=== PATIENT | female | born 1980 | race Asian ===

== ENCOUNTER 2017-06-16 00:07 | Inpatient (IN) | payer OTHER ==
[2017-06-16] MEDS ORDERED: OXYTOCIN 30 UNITS/LR 500 ML IV ×3 (00:14→03:30)
[2017-06-16] MEDS: LACTATED RINGER'S 1,000 ML IV ×2 (00:20→04:57)
[2017-06-16] MEDS ORDERED: METHYLERGONOVINE 0.2 MG INJ IM ×2 (00:30→03:30)
[2017-06-16] MEDS ORDERED: MISOPROSTOL 200 MCG TAB PR ×2 (00:30→03:30)
[2017-06-16] MEDS ORDERED: CARBOPROST 250 MCG INJ IM ×2 (00:30→03:30)
[2017-06-16] MEDS ORDERED: BUTORPHANOL 2 MG INJ IV (00:30)
[2017-06-16 00:32] LABS: ADD MAN DIFF? NO
[2017-06-16 00:35] LABS: BASOPHILS % 0.2 % (0.0-2.0); EOSINOPHILS # 0.1 10^3/ul (0.0-0.5); EOSINOPHILS % 0.4 % (0.0-7.0); HEMATOCRIT 36.3 % (37.0-47.0); HEMOGLOBIN 12.3 g/dl (12.0-16.0); LYMPHOCYTES # 3.4 10^3/ul (0.8-2.9); LYMPHOCYTES % 30.5 % (15.0-51.0); MEAN CORPUSCULAR HEMOGLOBIN 31.9 pg (29.0-33.0); MEAN CORPUSCULAR HGB CONC 33.9 g/dl (32.0-37.0); MEAN PLATELET VOLUME 11.5 fl (7.4-10.4); MONOCYTE # 0.9 10^3/ul (0.3-0.9); MONOCYTES % 7.9 % (0.0-11.0); NEUTROPHIL # 6.7 10^3/ul (1.6-7.5); NEUTROPHILS % 60.6 % (39.0-77.0); PLATELET COUNT 202 10^3/UL (140-415); RED BLOOD COUNT 3.86 10^6/ul (4.20-5.40); RED CELL DISTRIBUTION WIDTH 13.7 % (11.5-14.5)
[2017-06-16 00:35] LABS: WHITE BLOOD COUNT 11.1 10^3/ul (4.8-10.8)
[2017-06-16] MEDS: OXYTOCIN 30 UNITS/LR 500 ML IV ×2 (00:37→01:42)
[2017-06-16] MEDS: LIDOCAINE 1% (MPF) 30 ML INJ INJ (00:45)
[2017-06-16 00:51] LABS: INR 0.82; PROTIME 11.4 Sec (11.9-14.9); PT RATIO 0.9
[2017-06-16 01:25] LABS: HEPATITIS B SURFACE ANTIGEN NEGATIVE (NEGATIVE)
[2017-06-16] MEDS ORDERED: OXYCODONE/ASPIRIN (4.88/325) TAB PO (03:30)
[2017-06-16] MEDS ORDERED: ZOLPIDEM 5 MG TAB PO (03:30)
[2017-06-16] MEDS: LANOLIN 7 GM TUBE TOP (03:52)
[2017-06-16] MEDS: BENZOCAINE 20% 56 ML SPRAY TOP (03:52)
[2017-06-16] MEDS: WITCH HAZEL/GLYCERIN PAD PR (03:52)
[2017-06-16] MEDS: OXYCODONE/ASPIRIN (4.88/325) TAB PO (03:53)
[2017-06-16] MEDS: IBUPROFEN 600 MG TAB PO ×3 (05:50→17:42)
[2017-06-16] MEDS: SENNA/DOCUSATE NA (8.6MG/50MG) TAB PO ×2 (09:10→21:31)
[2017-06-16 22:37] LABS: RAPID PLASMA REAGIN NONREACTIVE (NR)
[2017-06-17] MEDS: IBUPROFEN 600 MG TAB PO ×4 (00:53→18:09)
[2017-06-17 08:18] LABS: ADD MAN DIFF? NO
[2017-06-17 08:20] LABS: BASOPHIL # 0.1 10^3/ul (0.0-0.1); BASOPHILS % 0.4 % (0.0-2.0); EOSINOPHILS # 0.1 10^3/ul (0.0-0.5); EOSINOPHILS % 0.6 % (0.0-7.0); HEMATOCRIT 30.9 % (37.0-47.0); HEMOGLOBIN 10.2 g/dl (12.0-16.0); LYMPHOCYTES # 2.9 10^3/ul (0.8-2.9); LYMPHOCYTES % 22.6 % (15.0-51.0); MEAN CORPUSCULAR HEMOGLOBIN 31.4 pg (29.0-33.0); MEAN CORPUSCULAR VOLUME 95.1 fl (82.0-101.0); MEAN PLATELET VOLUME 12.1 fl (7.4-10.4); MONOCYTE # 0.9 10^3/ul (0.3-0.9); MONOCYTES % 6.7 % (0.0-11.0); NEUTROPHILS % 69.5 % (39.0-77.0); PLATELET COUNT 183 10^3/UL (140-415); RED BLOOD COUNT 3.25 10^6/ul (4.20-5.40); RED CELL DISTRIBUTION WIDTH 13.9 % (11.5-14.5)
[2017-06-17 08:20] LABS: WHITE BLOOD COUNT 12.9 10^3/ul (4.8-10.8)
[2017-06-17] MEDS: SENNA/DOCUSATE NA (8.6MG/50MG) TAB PO ×2 (09:14→20:53)
[2017-06-18] MEDS: IBUPROFEN 600 MG TAB PO ×2 (06:00)
[2017-06-18] MEDS: SENNA/DOCUSATE NA (8.6MG/50MG) TAB PO (09:14)
[2017-06-18] MEDS: DIPHTH/TET/ACEL PERTUSS (ADULT) 0.5 ML VIAL IM* (10:31)
[2017-06-18] MEDS: INFLUENZA VIRUS VACCINE 0.5 ML (DISPENSING) IM* (11:39)
== END 2017-06-18 14:50 | disposition home or self-care (01) | DRG 775 ==
LOC: OBT 00:07 → L-D 00:09 → OBT 00:19 → L-D 00:09 → PP1 03:33
PROVIDERS: Obstetrics & Gynecology
PROC: 10E0XZZ Delivery of Products of Conception, External Approach (ICD-10-PCS; principal; 2017-06-16)
PROC: 0W8NXZZ Division of Female Perineum, External Approach (ICD-10-PCS; 2017-06-16)
DX: O80 Encounter for full-term uncomplicated delivery (principal); Z37.0 Single live birth; Z3A.40 40 weeks gestation of pregnancy
CPT/HCPCS: 85025; 85610; 85730; 86592; 86850; 86900; 86901; 87340; 90715

== ENCOUNTER 2017-06-21 16:29 | Emergency (ER) | payer OTHER ==
[2017-06-21 20:04] LABS: ADD MAN DIFF? NO
[2017-06-21 20:14] LABS: BASOPHILS % 0.2 % (0.0-2.0); EOSINOPHILS # 0.1 10^3/ul (0.0-0.5); EOSINOPHILS % 1.2 % (0.0-7.0); HEMATOCRIT 30.5 % (37.0-47.0); HEMOGLOBIN 10.2 g/dl (12.0-16.0); LYMPHOCYTES # 1.4 10^3/ul (0.8-2.9); MEAN CORPUSCULAR HEMOGLOBIN 31.9 pg (29.0-33.0); MEAN CORPUSCULAR HGB CONC 33.4 g/dl (32.0-37.0); MEAN CORPUSCULAR VOLUME 95.3 fl (82.0-101.0); MEAN PLATELET VOLUME 11.2 fl (7.4-10.4); MONOCYTE # 0.5 10^3/ul (0.3-0.9); MONOCYTES % 5.4 % (0.0-11.0); NEUTROPHIL # 7.7 10^3/ul (1.6-7.5); NEUTROPHILS % 78.9 % (39.0-77.0); PLATELET COUNT 243 10^3/UL (140-415); RED CELL DISTRIBUTION WIDTH 13.2 % (11.5-14.5)
[2017-06-21 20:14] LABS: WHITE BLOOD COUNT 9.7 10^3/ul (4.8-10.8)
[2017-06-21 20:24] LABS: ANION GAP 12 (8-16); BLOOD UREA NITROGEN 13 mg/dl (7-20); CALCIUM 8.2 mg/dl (8.4-10.2); CARBON DIOXIDE 23 mmol/L (21-31); CHLORIDE 109 mmol/L (97-110); GLUCOSE 96 mg/dl (70-220); POTASSIUM 3.6 mmol/L (3.5-5.1); SODIUM 140 mmol/L (135-144)
[2017-06-21] MEDS: HYDROCODONE/APAP (5/325) TAB PO (21:05)
== END 2017-06-21 22:12 | disposition home or self-care (01) ==
LOC: FTE 16:29
DX: O90.89 Other complications of the puerperium, not elsewhere classified (principal); R10.2 Pelvic and perineal pain; O73.1 Retained portions of placenta and membranes, without hemorrhage
CPT/HCPCS: 76856; 80048; 85025; 99284-25